=== PATIENT | male | born 1970 | race Two or more races ===

== ENCOUNTER 2019-01-05 09:49 | Inpatient (IN) | payer OTHER ==
[2019-01-05 10:24] VITALS: BMI 19.3
--- NOTE | 2019-01-05 11:39 | HP ---
COWS - Scale Resting Pulse: 0= [place] 80 or Below Sweatin= Chills/Flushing Restless Observation: 1= Difficult to Sit Still Pupil Size: 0= Normal to Room Light Bone or Joint Aches: 4=Acute Joint/Muscle Pain Runny Nose/ Eye Tearin= Constantly Teary/Runny GI Upset > 30mins: 1= Stomach Cramp Tremor Observation: 0= None Yawning Observation: 4= Several Times/Minute Anxiety or Irritability: 2=Irritable/Anxious Goose Flesh Skin: 0=Smooth Skin COWS Score: 17 CIWA Score Nausea/Vomitin-Mild Nausea/No Vomiting Muscle Tremors: None Anxiety: 2 Agitation: 1-Slight > Activity Paroxysmal Sweats: 2 Orientation: 0-Oriented Tacttile Disturbances: 0-None Auditory Disturbances: 2-Mild Harshness/Frighten Visual Disturbances: 2-Mild Sensitivity Headache: 0-None Present CIWA-Ar Total Score: 10 - Admission Criteria OASAS Guidelines: Admission for Medically Managed Detox: Requires at least one of the followin. CIWA greater than 12 2. Seizures within the past 24 hours 3. Delirium tremens within the past 24 hours 4. Hallucinations within the past 24 hours 5. Acute intervention needed for co occurring medical disorder 6. Acute intervention needed for co occurring psychiatric disorder 7. Severe withdrawal that cannot be handled at a lower level of care (continued vomiting, continued diarrhea, abnormal vital signs) requiring intravenous medication and/or fluids 8. Admission ROS [facility] Chief Complaint: " i want to stop this " Allergies/Adverse Reactions: Allergies Allergy/AdvReac Type Severity Reaction Status Date / Time Fish Containing Products Allergy Intermediate Swelling Verified 01/05/19 10:37 History of Present Illness: pt here requesting detox , reports using " anything I can get my hands on " .heroin 12-15 bags /day ivdu since age 26 , longest sobriety 3 yrs ago while in [place] , latest use this morning , 1 am, current symptoms as above , needles from the exchange, denies sharing, denies re-using, abscess x 2 most recently 3 years ago , OD -denies , prior detox 3 years ago . cocaine: 2 bags/day IVDU since age 31 , latest use 1 am today alcohol : 2 pints/day since age 31 , reports drinking alcohol every other day , if not drinking reports tremors , cramps stomach , blackouts , thinks he had w/d seizure 3 years ago , latest use 2 days ago , current symptoms as above. xanax : reports 1 x/day since age 26 , denies sobriety since . other illicits used : oxycodone , vistaril, tried k2 , street methadone - reports latest 01/03/19 bought 30 mg denies other illicits tobacco : 1 ppd , first age of use 19 pmhx : hep C dx 2000 , no tx ; pshx : denies Psych : depression , denies current SI / HI shx : homeless, employed " off the [employer] . Exam Limitations: Clinical Condition - Ebola screening Have you traveled outside of the country in the last 21 days: No Have you had contact with anyone from an Ebola affected area: No Have you been sick,other than usual withdrawal symptoms: No Do you have a fever: No - Review of Systems Constitutional: See HPI EENT: reports: See HPI, Other (reading glasses) Respiratory: reports: No Symptoms reported Cardiac: reports: No Symptoms Reported GI: reports: See HPI : reports: No Symptoms Reported Musculoskeletal: reports: See HPI Integumentary: reports: See HPI (IVDU karly UE) Neuro: reports: No Symptoms reported Endocrine: reports: No Symptoms Reported Psychiatric: reports: Orientated x3, Anxious Patient History - Patient Medical History Hx Anemia: No Hx Asthma: No Hx Chronic Obstructive Pulmonary Disease (COPD): No Hx Cancer: No Hx Cardiac Disorders: No Hx Congestive Heart Failure: No Hx Hypertension: No Hx Hypercholesterolemia: No Hx Pacemaker: No HX Cerebrovascular Accident: No Hx Seizures: No Hx Dementia: No Hx Diabetes: No Hx Gastrointestinal Disorders: No Hx Liver Disease: No Hx Genitourinary Disorders: No Hx Sexually Transmitted Disorders: No Hx Renal Disease (ESRD): No Hx Thyroid Disease: No Hx Human Immunodeficiency Virus (HIV): No (last 08/26) Hx Hepatitis C: Yes (since 2000) Hx Depression: Yes (was on Zoloft and Seroquel 3 yrs ago) Hx Suicide Attempt: No (DENIES) Hx Bipolar Disorder: No Hx Schizophrenia: No - Patient Surgical History Past Surgical History: No Hx Neurologic Surgery: No Hx Cataract Extraction: No Hx Cardiac Surgery: No Hx Lung Surgery: No Hx Breast Surgery: No Hx Breast Biopsy: No Hx Abdominal Surgery: No Hx Appendectomy: No Hx Cholecystectomy: No Hx Genitourinary Surgery: No Hx Section: No Hx Orthopedic Surgery: No Anesthesia Reaction: No - PPD History Previous Implant?: No Documented Results: Positive w/o proof Implanted On Prior [facility] Admission?: No Date: 10/11/14 Results: 0 mm - Smoking Cessation Smoking history: Current every day smoker Have you smoked in the past 12 months: Yes Aproximately how many cigarettes per day: 10 Cigars Per Day: 0 Hx Chewing Tobacco Use: No Initiated information on smoking cessation: No - Substances Abused Heroin Route: Injection Frequency: Daily Amount used: 12-15 bags Age of first use: 26 Date of Last Use: 01/05/19 Cocaine Route: Injection Frequency: Daily Amount used: 2 bags Age of first use: 31 Date of Last Use: 01/05/19 Alprazolam (Xanax) Route: Oral Frequency: Daily Amount used: 2 mg Age of first use: 31 Date of Last Use: 01/05/19 Alcohol Route: Oral Frequency: 3-6 times per week Amount used: 2 pints vodka Age of first use: 31 Date of Last Use: 01/03/19 Non-Rx Methadone Route: Oral Frequency: 1-3 times last 30 days Amount used: 30 mg Age of first use: 48 Date of Last Use: 01/03/19 Admission Physical Exam S - Vital Signs Vital Signs: Vital Signs - 24 hr 01/05/19 10:22 Temperature 98 F Pulse Rate 67 Respiratory 20 Rate Blood Pressure 93/62 - Physical General Appearance: Yes: Disheveled, Moderate Distress, Sweating, Anxious HEENTM: Yes: EOMI, Hearing grossly Normal, Normocephalic, Normal Voice, Nasal Congestion, Rhinorrhea Respiratory: Yes: Chest Non-Tender, Lungs Clear, Normal Breath Sounds Neck: Yes: No masses,lesions,Nodules, Trachea in good position Cardiology: Yes: Regular Rhythm, Regular Rate, S1, S2 Abdominal: Yes: Non Tender, Soft Back: Yes: Normal Inspection Musculoskeletal: Yes: Gait Steady Extremities: Yes: Non-Tender Neurological: Yes: Motor Strength 5/5 - Diagnostic (1) Cocaine dependence Current Visit: Yes Status: Chronic Qualifiers: Substance use status: uncomplicated Qualified Code(s): F14.20 - Cocaine dependence, uncomplicated (2) Alcohol dependence Current Visit: Yes Status: Acute Qualifiers: Substance use status: in withdrawal (3) Benzodiazepine dependence Current Visit: Yes Status: Acute (4) Opioid dependence with withdrawal Current Visit: No Status: Acute (5) Nicotine dependence Current Visit: Yes Status: Chronic Qualifiers: Nicotine product type: cigarettes Substance use status: uncomplicated Qualified Code(s): F17.210 - Nicotine dependence, cigarettes, uncomplicated BHS Breath Alcohol Content Breath Alcohol Content: 0 Urine Drug Screen - Results Drug Screen Negative: No Urine Drug Screen Results: ABRAHAM-Cocaine, OPI-Opiates, BZO-Benzodiazepines, MTD- Methadone Inpatient Rehab Admission - Rehab Decision to Admit Inpatient rehab admission?: No
[2019-01-05] MEDS ORDERED: DICYCLOMINE HCL 10 MG CAPSULE PO PRN (11:45)
[2019-01-05] MEDS ORDERED: MAGNESIUM CITRATE 300 ML BOTTLE PO PRN (11:45)
[2019-01-05] MEDS ORDERED: ACETAMINOPHEN 325 MG TABLET (FP) PO PRN ×2 (11:45)
[2019-01-05] MEDS ORDERED: IBUPROFEN 400 MG TABLET (FP) PO PRN (11:45)
[2019-01-05] MEDS ORDERED: MAGNESIUM HYDROX 2400MG/30ML ORAL SUSPENSION 30 ML CUP PO PRN (11:45)
[2019-01-05] MEDS ORDERED: MENTHOL/PHENOL 1 EACH UD MM PRN (11:45)
[2019-01-05] MEDS ORDERED: BISMUTH SUBSALICYLATE 262 MG/15 ML BTL PO PRN (11:45)
[2019-01-05] MEDS ORDERED: chlordiazePOXIDE HCL 10 MG CAPSULE PO PRN (11:45)
[2019-01-05] MEDS ORDERED: MAG HYDROX/AL HYDROX/SIMETH 30 ML UNIT-DOSE CUP PO PRN (11:45)
[2019-01-05] MEDS ORDERED: MELATONIN 5 MG TABLETS PO PRN (11:45)
[2019-01-05] MEDS ORDERED: NICOTINE POLACRILEX 2 MG GUM BUC PRN (11:45)
[2019-01-05] MEDS ORDERED: METHADONE HCL 10 MG TABLET (FOR DETOX USE ONLY) PO ONE ×2 (13:00→15:45)
[2019-01-05] MEDS: chlordiazePOXIDE HCL 25 MG CAPSULE PO SCH ×2 (14:25→22:17)
[2019-01-05] MEDS: THIAMINE HCL 100 MG TABLET (FP) PO SCH (22:17)
[2019-01-06] MEDS: chlordiazePOXIDE HCL 25 MG CAPSULE PO SCH (05:27)
[2019-01-06] MEDS ORDERED: METHADONE HCL 10 MG TABLET (FOR DETOX USE ONLY) PO ONE (10:00)
[2019-01-06] MEDS: PRENATAL VITAMINS W/ FOLIC ACID TABLET (FP) PO SCH (10:16)
[2019-01-06 12:40] LABS: HEMATOCRIT 37.8 % (35.4-49); HEMOGLOBIN 12.2 GM/dL (11.7-16.9); MCH 25.7 pg (25.7-33.7); MCHC 32.4 g/dl (32.0-35.9); MEAN CELL VOLUME 79.4 fl (80-96); MEAN PLT VOLUME 9.9 fl (7.5-11.1); PLATELET COUNT 317 K/MM3 (134-434); RBC 4.76 M/mm3 (4.00-5.60); RDW 19.9 % (11.9-15.9); WHITE BLOOD COUNT 5.2 K/mm3 (4.0-10.0)
[2019-01-06] MEDS: chlordiazePOXIDE 5 MG CAPSULE PO SCH ×2 (12:44→22:00)
[2019-01-06 13:23] LABS: ALBUMIN 3.7 g/dl (3.4-5.0); ALK PHOS 75 U/L (45-117); ANION GAP 6 MMOL/L (8-16); BILIRUBIN,TOTAL 0.8 mg/dL (0.2-1); BLOOD UREA NITROGEN 15 mg/dL (7-18); CALCIUM 9.1 mg/dL (8.5-10.1); CHLORIDE 99 mmol/L (98-107); CO2 28 mmol/L (21-32); CREATININE 0.9 mg/dL (0.55-1.3); GLUCOSE,RANDOM 75 mg/dL (74-106); POTASSIUM 4.9 mmol/L (3.5-5.1); SGOT/AST 34 U/L (15-37); SGPT/ALT 29 U/L (13-61); SODIUM 133 mmol/L (136-145); TOT PROT 7.9 g/dl (6.4-8.2)
--- NOTE | 2019-01-06 14:37 | PN ---
[facility] CIWA - CIWA Score Nausea/Vomitin-No Nausea/No Vomiting Muscle Tremors: 2 Anxiety: 1-Mildly Anxious Agitation: 2 Paroxysmal Sweats: 1-Minimal Palms Moist Orientation: 0-Oriented Tacttile Disturbances: 0-None Auditory Disturbances: 0-None Visual Disturbances: 0-None Headache: 0-None Present CIWA-Ar Total Score: 6 BHS COWS - Scale Resting Pulse: 0= [place] 80 or Below Sweatin= Chills/Flushing Restless Observation: 0= Sits Still Pupil Size: 0= Normal to Room Light Bone or Joint Aches: 2= Severe Diffuse Aches Runny Nose/ Eye Tearin= Nasal Congestion GI Upset > 30mins: 2= Nausea/Diarrhea Tremor Observation of Outstretched Hands: 2= Slight Tremor Visible Yawning Observation: 2= >3x During Session Anxiety or Irritability: 2=Irritable/Anxious Goose Flesh Skin: 0=Smooth Skin COWS Score: 12 S Progress Note (SOAP) Subjective: feeling better wants to go to methadone maintenance program Objective: 01/06/19 14:37 Vital Signs Temperature 98.4 F 01/06/19 13:45 Pulse Rate 63 01/06/19 13:45 Respiratory Rate 20 01/06/19 13:45 Blood Pressure 104/72 01/06/19 13:45 O2 Sat by Pulse Oximetry (%) Laboratory Last Values WBC 5.2 K/mm3 (4.0-10.0) 01/06/19 06:30 RBC 4.76 M/mm3 (4.00-5.60) 01/06/19 06:30 Hgb 12.2 GM/dL (11.7-16.9) 01/06/19 06:30 Hct 37.8 % (35.4-49) 01/06/19 06:30 MCV 79.4 fl (80-96) L 01/06/19 06:30 MCH 25.7 pg (25.7-33.7) 01/06/19 06:30 MCHC 32.4 g/dl (32.0-35.9) 01/06/19 06:30 RDW 19.9 % (11.9-15.9) H 01/06/19 06:30 Plt Count 317 K/MM3 (134-434) 01/06/19 06:30 MPV 9.9 fl (7.5-11.1) 01/06/19 06:30 Sodium 133 mmol/L (136-145) L 01/06/19 06:30 Potassium 4.9 mmol/L (3.5-5.1) 01/06/19 06:30 Chloride 99 mmol/L (98-107) 01/06/19 06:30 Carbon Dioxide 28 mmol/L (21-32) 01/06/19 06:30 Anion Gap 6 MMOL/L (8-16) L 01/06/19 06:30 BUN 15 mg/dL (7-18) 01/06/19 06:30 Creatinine 0.9 mg/dL (0.55-1.3) 01/06/19 06:30 Creat Clearance w eGFR 90.45 (>60) 01/06/19 06:30 Random Glucose 75 mg/dL (74-106) 01/06/19 06:30 Calcium 9.1 mg/dL (8.5-10.1) 01/06/19 06:30 Total Bilirubin 0.8 mg/dL (0.2-1) 01/06/19 06:30 AST 34 U/L (15-37) 01/06/19 06:30 ALT 29 U/L (13-61) 01/06/19 06:30 Alkaline Phosphatase 75 U/L (45-117) 01/06/19 06:30 Total Protein 7.9 g/dl (6.4-8.2) 01/06/19 06:30 Albumin 3.7 g/dl (3.4-5.0) 01/06/19 06:30 HIV 1&2 Antibody Screen Negative 01/05/19 09:00 HIV P24 Antigen Negative 01/05/19 09:00 lab noted Assessment: 01/06/19 14:37 withdrawal sx Plan: continue detox
[2019-01-06] MEDS: THIAMINE HCL 100 MG TABLET (FP) PO SCH (22:27)
[2019-01-07] MEDS: chlordiazePOXIDE 5 MG CAPSULE PO SCH (05:49)
[2019-01-07] MEDS ORDERED: METHADONE HCL 10 MG TABLET (FOR DETOX USE ONLY) PO ONE (10:00)
[2019-01-07] MEDS: PRENATAL VITAMINS W/ FOLIC ACID TABLET (FP) PO SCH (10:36)
--- NOTE | 2019-01-07 11:53 | PN ---
[facility] CIWA - CIWA Score Nausea/Vomitin-No Nausea/No Vomiting Muscle Tremors: 2 Anxiety: 1-Mildly Anxious Agitation: 1-Slight > Activity Paroxysmal Sweats: 1-Minimal Palms Moist Orientation: 0-Oriented Tacttile Disturbances: 0-None Auditory Disturbances: 0-None Visual Disturbances: 0-None Headache: 1-Very Mild CIWA-Ar Total Score: 6 BHS COWS - Scale Resting Pulse: 0= [place] 80 or Below Sweatin= Chills/Flushing Restless Observation: 0= Sits Still Pupil Size: 0= Normal to Room Light Bone or Joint Aches: 1= Mild Discomfort Runny Nose/ Eye Tearin= Nasal Congestion GI Upset > 30mins: 1= Stomach Cramp Tremor Observation of Outstretched Hands: 1= Tremor [place], Not Seen Yawning Observation: 1= 1-2x During Session Anxiety or Irritability: 1=Feels Anxious/Irritable Goose Flesh Skin: 0=Smooth Skin COWS Score: 7 [facility] Progress Note (SOAP) Subjective: feeling ok today social with peers in day room well rested Objective: 01/07/19 11:53 Vital Signs Temperature 97.4 F L 01/07/19 10:21 Pulse Rate 57 L 01/07/19 10:21 Respiratory Rate 18 01/07/19 10:21 Blood Pressure 100/51 L 01/07/19 10:21 O2 Sat by Pulse Oximetry (%) Laboratory Last Values WBC 5.2 K/mm3 (4.0-10.0) 01/06/19 06:30 RBC 4.76 M/mm3 (4.00-5.60) 01/06/19 06:30 Hgb 12.2 GM/dL (11.7-16.9) 01/06/19 06:30 Hct 37.8 % (35.4-49) 01/06/19 06:30 MCV 79.4 fl (80-96) L 01/06/19 06:30 MCH 25.7 pg (25.7-33.7) 01/06/19 06:30 MCHC 32.4 g/dl (32.0-35.9) 01/06/19 06:30 RDW 19.9 % (11.9-15.9) H 01/06/19 06:30 Plt Count 317 K/MM3 (134-434) 01/06/19 06:30 MPV 9.9 fl (7.5-11.1) 01/06/19 06:30 Sodium 133 mmol/L (136-145) L 01/06/19 06:30 Potassium 4.9 mmol/L (3.5-5.1) 01/06/19 06:30 Chloride 99 mmol/L (98-107) 01/06/19 06:30 Carbon Dioxide 28 mmol/L (21-32) 01/06/19 06:30 Anion Gap 6 MMOL/L (8-16) L 01/06/19 06:30 BUN 15 mg/dL (7-18) 01/06/19 06:30 Creatinine 0.9 mg/dL (0.55-1.3) 01/06/19 06:30 Creat Clearance w eGFR 90.45 (>60) 01/06/19 06:30 Random Glucose 75 mg/dL (74-106) 01/06/19 06:30 Calcium 9.1 mg/dL (8.5-10.1) 01/06/19 06:30 Total Bilirubin 0.8 mg/dL (0.2-1) 01/06/19 06:30 AST 34 U/L (15-37) 01/06/19 06:30 ALT 29 U/L (13-61) 01/06/19 06:30 Alkaline Phosphatase 75 U/L (45-117) 01/06/19 06:30 Total Protein 7.9 g/dl (6.4-8.2) 01/06/19 06:30 Albumin 3.7 g/dl (3.4-5.0) 01/06/19 06:30 RPR Titer Nonreactive (NONREACTIVE) 01/06/19 06:30 HIV 1&2 Antibody Screen Negative 01/05/19 09:00 HIV P24 Antigen Negative 01/05/19 09:00 lab noted Assessment: 01/07/19 11:53 withdrawal sx Plan: continue detox
[2019-01-07] MEDS ORDERED: chlordiazePOXIDE HCL 10 MG CAPSULE PO PRN (13:00)
[2019-01-07] MEDS: chlordiazePOXIDE HCL 10 MG CAPSULE PO SCH ×2 (13:10→22:40)
[2019-01-07] MEDS: THIAMINE HCL 100 MG TABLET (FP) PO SCH (22:40)
[2019-01-08] MEDS: chlordiazePOXIDE HCL 10 MG CAPSULE PO SCH (05:50)
[2019-01-08 06:20] VITALS: BP 98/61; PULSE 62; TEMP 98.5
[2019-01-08] MEDS ORDERED: METHADONE HCL 10 MG TABLET (FOR DETOX USE ONLY) PO ONE (10:00)
--- NOTE | 2019-01-08 21:44 | DS ---
[facility] Detox Discharge Summary Admission Date: 01/05/19 Discharge Date: 01/08/19 - History Present History: Alcohol Dependence, Cocaine Dependence, Opioid Dependence, Sedative Dependence Additional Comments: PATIENT LEFT DETOX UNIT EARLY IN AM PRIOR TO TIME OF ARRIVAL OF [employer] ON UNIT. THUS , PRE-DISCHARGE MEDICAL ASSESSMENT UNABLE TO BE DONE. PER PHARMACY AIDE MILKA COSTELLO, PATIENT TO ATTEND THE [facility] PROGRAM FOR AFTERCARE. Pertinent Past History: Hep C, Depression, Nicotine Dependence. - Physical Exam Results Vital Signs: Vital Signs Temperature 98.5 F 01/08/19 06:19 Pulse Rate 62 01/08/19 06:19 Respiratory Rate 18 01/08/19 06:19 Blood Pressure 98/61 01/08/19 06:19 O2 Sat by Pulse Oximetry (%) Pertinent Admission Physical Exam Findings: WITHDRAWAL SYMPTOMS. Laboratory Tests 01/05/19 01/06/19 01/06/19 09:00 06:30 06:30 WBC 5.2 RBC 4.76 Hgb 12.2 Hct 37.8 MCV 79.4 L MCH 25.7 MCHC 32.4 RDW 19.9 H Plt Count 317 MPV 9.9 Sodium 133 L Potassium 4.9 Chloride 99 Carbon Dioxide 28 Anion Gap 6 L BUN 15 Creatinine 0.9 Creat Clearance w eGFR 90.45 Random Glucose 75 Calcium 9.1 Total Bilirubin 0.8 AST 34 ALT 29 Alkaline Phosphatase 75 Total Protein 7.9 Albumin 3.7 RPR Titer HIV 1&2 Antibody Screen Negative HIV P24 Antigen Negative 01/06/19 06:30 WBC RBC Hgb Hct MCV MCH MCHC RDW Plt Count MPV Sodium Potassium Chloride Carbon Dioxide Anion Gap BUN Creatinine Creat Clearance w eGFR Random Glucose Calcium Total Bilirubin AST ALT Alkaline Phosphatase Total Protein Albumin RPR Titer Nonreactive HIV 1&2 Antibody Screen HIV P24 Antigen LABS NOTED. - Treatment Hospital Course: Detox Protocol Followed, Detoxed Safely, Responded well, Discharged Condition Good Patient has Accepted a Rehab Referral to: PATIENT TO ATTEND THE [facility]T.P[facility] PROGRAM. - Medication Discharge Medications: Ambulatory Orders NK [No Known Home Medication] 10/09/14 - Diagnosis (1) Alcohol dependence Status: Acute Qualifiers: Substance use status: in withdrawal Complication of substance-induced condition: uncomplicated Qualified Code(s): F10.230 - Alcohol dependence with withdrawal, uncomplicated (2) Benzodiazepine dependence Status: Acute (3) Opioid dependence with withdrawal Status: Acute (4) Cocaine dependence Status: Chronic Qualifiers: Substance use status: uncomplicated Qualified Code(s): F14.20 - Cocaine dependence, uncomplicated (5) Nicotine dependence Status: Chronic Qualifiers: Nicotine product type: cigarettes Substance use status: uncomplicated Qualified Code(s): F17.210 - Nicotine dependence, cigarettes, uncomplicated - AMA Did Patient Leave Against Medical Advice: No
[2019-01-09] MEDS ORDERED: METHADONE HCL 5 MG TABLET (FOR DETOX USE ONLY) PO ONE (06:00)
== END 2019-01-08 07:00 | disposition home or self-care (01) | DRG 773 ==
LOC: YASAS 09:49 → Y3N 12:43
PROVIDERS: ADMIT Surgery; ATTEND Surgery
PROC: HZ2ZZZZ Detoxification Services for Substance Abuse Treatment (ICD-10-PCS; principal; 2019-01-05)
DX: F11.23 Opioid dependence with withdrawal (principal); F10.230 Alcohol dependence with withdrawal, uncomplicated; F13.20 Sedative, hypnotic or anxiolytic dependence, uncomplicated; F14.20 Cocaine dependence, uncomplicated; F17.210 Nicotine dependence, cigarettes, uncomplicated
CPT/HCPCS: 36415; 80053; 85027; 86593; 87389

== ENCOUNTER 2019-06-12 08:50 | Inpatient (IN) | payer OTHER ==
[2019-06-12 09:08] VITALS: BMI 18.2
--- NOTE | 2019-06-12 09:36 | HP ---
"COWS - Scale Resting Pulse: 1= [place] 81-100 Sweatin= Chills/Flushing Restless Observation: 1= Difficult to Sit Still Pupil Size: 0= Normal to Room Light Bone or Joint Aches: 1= Mild Discomfort Runny Nose/ Eye Tearin= Nasal Congestion GI Upset > 30mins: 2= Nausea/Diarrhea Tremor Observation: 2= Slight Tremor Visible Yawning Observation: 1= 1-2x During Session Anxiety or Irritability: 1=Feels Anxious/Irritable Goose Flesh Skin: 0=Smooth Skin COWS Score: 11 CIWA Score Nausea/Vomitin Muscle Tremors: 4-Moderate,w/Arms Extend Anxiety: 4-Mod. Anxious/Guarded Agitation: 1-Slight > Activity Paroxysmal Sweats: 1-Minimal Palms Moist Orientation: 0-Oriented Tacttile Disturbances: 1-Very Mild Itch/Numbness Auditory Disturbances: 0-None Visual Disturbances: 0-None Headache: 2-Mild CIWA-Ar Total Score: 15 - Admission Criteria OASAS Guidelines: Admission for Medically Managed Detox: Requires at least one of the followin. CIWA greater than 12 2. Seizures within the past 24 hours 3. Delirium tremens within the past 24 hours 4. Hallucinations within the past 24 hours 5. Acute intervention needed for co occurring medical disorder 6. Acute intervention needed for co occurring psychiatric disorder 7. Severe withdrawal that cannot be handled at a lower level of care (continued vomiting, continued diarrhea, abnormal vital signs) requiring intravenous medication and/or fluids 8. Patient presents the following: CIWA greater than 12 Admission Criteria Met: Admission criteria met Admission ROS S - HPI Chief Complaint: I want to get clean, I might go back to [place], be with my mommy Allergies/Adverse Reactions: Allergies Allergy/AdvReac Type Severity Reaction Status Date / Time Fish Containing Products Allergy Intermediate Swelling Verified 01/05/19 10:37 No Known Drug Allergies Allergy Verified 06/12/19 09:20 History of Present Illness: 49 yo gentleman here for detox from opiates and alcohol, also using cocaine. Patient last here for detox December, - at that time he was to f/u with Joe Monzon [facility] but he did not f/u. Patient denies seizures or overdose but has had black outs. Longest time sober was two years in 2000 while living in remote area of [place] with his mother. urine tox + bzo and oxy but patient states he does not use these separately, must be mixed up with the heroin. States he is unable to go more than a few hours without using and then he gets very sick with diarrhea and shakes, gets alot of cravings and anxiety. He is living in a homeless senior living. Although patient appears to have been on suboxone (see below) he does not seem to remember being on it. [facility] This report was requested by: Elzbieta Elaine | Reference #: [id number] Others' Prescriptions Patient Name: Trent Knight Date: 1970 Address: [address] [place] [id number] Sex: Male Rx Written Rx Dispensed Drug Quantity Days Supply Prescriber Name Payment Method Dispenser 12/08/2018 12/11/2018 buprenorphine-naloxone 8-2 mg sl film 30 10 Karen Rizo () Insurance Lirx Exam Limitations: No Limitations - Ebola screening Have you traveled outside of the country in the last 21 days: No (N) Have you had contact with anyone from an Ebola affected area: No Do you have a fever: No - Review of Systems Constitutional: Loss of Appetite, Malaise, Night Sweats, Weakness, Unintentional Wgt. Loss, Unexplained wgt Loss EENT: reports: Nose Congestion Respiratory: reports: No Symptoms reported Cardiac: reports: No Symptoms Reported GI: reports: Nausea, Poor Fluid Intake, Abdominal cramping : reports: Frequency Musculoskeletal: reports: Back Pain, Muscle Pain Integumentary: reports: No Symptoms Reported Neuro: reports: Headache, Tremors, Weakness Endocrine: reports: No Symptoms Reported Hematology: reports: No Symptoms Reported Psychiatric: reports: Judgement Intact, Mood/Affect Appropiate, Orientated x3, Anxious Other Systems: Reviewed and Negative Patient History - Patient Medical History Hx Anemia: No Hx Asthma: No Hx Chronic Obstructive Pulmonary Disease (COPD): No Hx Cancer: No Hx Cardiac Disorders: No Hx Congestive Heart Failure: No Hx Hypertension: No Hx Hypercholesterolemia: No Hx Pacemaker: No HX Cerebrovascular Accident: No Hx Seizures: No Hx Dementia: No Hx Diabetes: No Hx Gastrointestinal Disorders: No Hx Liver Disease: No Hx Genitourinary Disorders: No Hx Sexually Transmitted Disorders: No Hx Renal Disease (ESRD): No Hx Thyroid Disease: No Hx Human Immunodeficiency Virus (HIV): No (last 08/26) Hx Hepatitis C: Yes (was treated in 2016 with pills while incarcerated) Hx Depression: Yes (was on Zoloft and Seroquel 3 yrs ago) Hx Suicide Attempt: No (DENIES) Hx Bipolar Disorder: No Hx Schizophrenia: No - Patient Surgical History Past Surgical History: No Hx Neurologic Surgery: No Hx Cataract Extraction: No Hx Cardiac Surgery: No Hx Lung Surgery: No Hx Breast Surgery: No Hx Breast Biopsy: No Hx Abdominal Surgery: No Hx Appendectomy: No Hx Cholecystectomy: No Hx Genitourinary Surgery: No Hx Section: No Hx Orthopedic Surgery: No Anesthesia Reaction: No - PPD History Previous Implant?: Yes Documented Results: Negative w/proof Implanted On Prior [facility] Admission?: Yes Date: 01/07/19 Results: 0 mm PPD to be Administered?: No - Reproductive History Patient is a Female of Child Bearing Age (11 -55 yrs old): No - Smoking Cessation Smoking history: Current every day smoker Have you smoked in the past 12 months: Yes Aproximately how many cigarettes per day: 30 Cigars Per Day: 0 Hx Chewing Tobacco Use: No Initiated information on smoking cessation: Yes 'Breaking Loose' booklet given: 06/12/19 (give on floor) - Substance & Tx. History Hx Alcohol Use: Yes Hx Substance Use: Yes Substance Use Type: Alcohol, Cocaine, Heroin, Marijuana, Opiates Hx Substance Use Treatment: Yes (detox, rehab) - Substances abused Alcohol Substance route: Oral Frequency: 3-6 times per week Amount used: 2 pints of vodka Age of first use: 29 Date of last use: 06/11/19 Heroin Substance route: Injection Frequency: Daily Amount used: 15 bags a day Age of first use: 26 Date of last use: 06/12/19 Cocaine Substance route: Injection Frequency: Daily Amount used: 2 bags Age of first use: 29 Date of last use: 06/11/19 Marijuana/Hashish Substance route: Smoking Frequency: Daily Amount used: 1 bag Age of first use: 23 Date of last use: 06/11/19 Family Disease History - Family Disease History Family Disease History: Diabetes: Mother (living, ), Brother (five - two - one from diabetes, one from an abscess), Heart Disease: Father ( ), Other: Father, Mother, Brother, Sister (three - healthy) Admission Physical Exam [facility] - Vital Signs Vital Signs: Vital Signs - 24 hr 06/12/19 06/12/19 09:03 09:14 Temperature 97.3 F L 97.3 F L Pulse Rate 77 77 Respiratory 14 14 Rate Blood Pressure 112/72 112/72 - Physical General Appearance: Yes: Appropriately Dressed, Moderate Distress, Thin, Tremorous, Anxious HEENTM: Yes: EOMI, Hearing grossly Normal, Normocephalic, Normal Voice, Pharynx Normal Respiratory: Yes: Normal Breath Sounds, No Respiratory Distress Neck: Yes: No masses,lesions,Nodules, Supple Breast: Yes: Breast Exam Deferred Cardiology: Yes: Regular Rhythm, Regular Rate Abdominal: Yes: Flat, Soft Genitourinary: Yes: Frequency Back: Yes: Normal Inspection Musculoskeletal: Yes: full range of Motion, Gait Steady, Back pain, Muscle Pain Extremities: Yes: Normal Inspection, Normal Range of Motion, Non-Tender, Tremors Neurological: Yes: Fully Oriented, Alert, Motor Strength 5/5, Normal Mood/Affect , Normal Response Integumentary: Yes: Normal Color, Warm, Track Rojas (both arms with track rojas - no overt abscess or erythema noted) Lymphatic: Yes: Within Normal Limits - Diagnostic (1) Weight decreased Current Visit: Yes Status: Chronic (2) Marijuana dependence Current Visit: Yes Status: Acute (3) Alcohol dependence with uncomplicated withdrawal Current Visit: Yes Status: Chronic (4) Opioid dependence with withdrawal Current Visit: Yes Status: Chronic (5) Cocaine dependence Current Visit: Yes Status: Chronic Qualifiers: Substance use status: uncomplicated Qualified Code(s): F14.20 - Cocaine dependence, uncomplicated (6) Nicotine dependence Current Visit: Yes Status: Chronic Qualifiers: Nicotine product type: cigarettes Substance use status: uncomplicated Qualified Code(s): F17.210 - Nicotine dependence, cigarettes, uncomplicated Cleared for Admission [facility] - Detox or Rehab [facility] Level of Care: Medically Managed Detox Regimen/Protocol: Methadone/Librium Breathalyzer - Breathalyzer Breathalyzer: 0 Urine Drug Screen - Test Device Lot number: [id number] Expiration date: 03/12/21 - Control Is test valid?: Yes - Results Drug screen NEGATIVE: No Urine drug screen results: THC-Marijuana, ABRAHAM-Cocaine, FEN-Fentanyl, MOP-Opiates , OXY-Oxycodone, MTD-Methadone, BZO-Benzodiazepines Inpatient Rehab Admission - Rehab Decision to Admit Inpatient rehab admission?: No"
[2019-06-12] MEDS ORDERED: MENTHOL/PHENOL 1 EACH UD MM PRN (09:51)
[2019-06-12] MEDS ORDERED: BISMUTH SUBSALICYLATE 524 MG/30 ML UD PO PRN (09:51)
[2019-06-12] MEDS ORDERED: hydrOXYzine PAMOATE 25 MG CAPSULE (FP) PO PRN (09:51)
[2019-06-12] MEDS ORDERED: MAG HYDROX/AL HYDROX/SIMETH 30 ML UNIT-DOSE CUP PO PRN (09:51)
[2019-06-12] MEDS ORDERED: traZODone HCL 50 MG TABLET (FP) PO PRN (09:51)
[2019-06-12] MEDS ORDERED: MAGNESIUM CITRATE 300 ML BOTTLE PO PRN (09:51)
[2019-06-12] MEDS ORDERED: ACETAMINOPHEN 325 MG TABLET (FP) PO PRN ×2 (09:51)
[2019-06-12] MEDS ORDERED: chlordiazePOXIDE HCL 10 MG CAPSULE PO PRN (09:51)
[2019-06-12] MEDS ORDERED: cloNIDine HCL 0.1 MG TABLET PO PRN (09:51)
[2019-06-12] MEDS ORDERED: IBUPROFEN 400 MG TABLET (FP) PO PRN (09:51)
[2019-06-12] MEDS ORDERED: MAGNESIUM HYDROX 2400MG/30ML ORAL SUSPENSION 30 ML CUP PO PRN (09:51)
[2019-06-12] MEDS ORDERED: MELATONIN 5 MG TABLETS PO PRN (09:51)
[2019-06-12] MEDS ORDERED: METHOCARBAMOL 500 MG TABLET PO PRN (09:51)
[2019-06-12] MEDS: NICOTINE 21 MG/24 HOURS TOPICAL PATCH TD SCH (10:48)
[2019-06-12] MEDS: PRENATAL VITAMINS W/ FOLIC ACID TABLET (FP) PO SCH (10:48)
[2019-06-12] MEDS ORDERED: METHADONE HCL 10 MG TABLET (FOR DETOX USE ONLY) PO ONE (11:00)
[2019-06-12] MEDS ORDERED: chlordiazePOXIDE HCL 25 MG CAPSULE PO ONE (11:00)
[2019-06-12] MEDS: chlordiazePOXIDE HCL 25 MG CAPSULE PO SCH ×2 (13:47→22:12)
[2019-06-12] MEDS: THIAMINE HCL 100 MG TABLET (FP) PO SCH (22:12)
[2019-06-12 22:24] LABS: HEMOGLOBIN 11.7 GM/dL (11.7-16.9); MCH 27.8 pg (25.7-33.7); MCHC 32.5 g/dl (32.0-35.9); MEAN CELL VOLUME 85.6 fl (80-96); MEAN PLT VOLUME 9.4 fl (7.5-11.1); PLATELET COUNT 277 K/MM3 (134-434); RBC 4.21 M/mm3 (4.00-5.60); RDW 16.7 % (11.9-15.9); WHITE BLOOD COUNT 6.6 K/mm3 (4.0-10.0)
[2019-06-12 22:37] LABS: ALBUMIN 3.7 g/dl (3.4-5.0); BILIRUBIN,TOTAL 0.8 mg/dL (0.2-1); BLOOD UREA NITROGEN 22.2 mg/dL (7-18); POTASSIUM 4.2 mmol/L (3.5-5.1); TOT PROT 7.8 g/dl (6.4-8.2)
[2019-06-13] MEDS: chlordiazePOXIDE HCL 25 MG CAPSULE PO SCH ×3 (06:38→21:09)
[2019-06-13] MEDS ORDERED: METHADONE HCL 5 MG TABLET (FOR DETOX USE ONLY) ONE (09:08)
[2019-06-13] MEDS ORDERED: METHADONE HCL 10 MG TABLET (FOR DETOX USE ONLY) ONE (09:08)
[2019-06-13] MEDS ORDERED: METHADONE (DETOX) 20 MG, METHADONE (DETOX) 5 MG PO ONE (10:00)
[2019-06-13] MEDS: NICOTINE 21 MG/24 HOURS TOPICAL PATCH TD SCH (10:20)
[2019-06-13] MEDS: PRENATAL VITAMINS W/ FOLIC ACID TABLET (FP) PO SCH (10:21)
--- NOTE | 2019-06-13 13:26 | PN ---
[facility] CIWA - CIWA Score Nausea/Vomitin-Mild Nausea/No Vomiting Muscle Tremors: 3 Anxiety: 3 Agitation: 3 Paroxysmal Sweats: 3 Orientation: 0-Oriented Tacttile Disturbances: 0-None Auditory Disturbances: 0-None Visual Disturbances: 0-None Headache: 0-None Present CIWA-Ar Total Score: 13 [facility] COWS - Scale Resting Pulse: 0= [place] 80 or Below Sweatin= Chills/Flushing Restless Observation: 1= Difficult to Sit Still Pupil Size: 0= Normal to Room Light Bone or Joint Aches: 2= Severe Diffuse Aches Runny Nose/ Eye Tearin= Runny Nose/Eyes GI Upset > 30mins: 1= Stomach Cramp Tremor Observation of Outstretched Hands: 2= Slight Tremor Visible Yawning Observation: 0= None Anxiety or Irritability: 1=Feels Anxious/Irritable Goose Flesh Skin: 0=Smooth Skin COWS Score: 10 S Progress Note (SOAP) Subjective: Interrupted sleep, medication is working well Objective: 06/13/19 13:20 Last Vital Signs Temp Pulse Resp BP Pulse Ox 97.9 F 68 15 102/68 06/13/19 09:14 06/13/19 09:14 06/13/19 09:14 06/13/19 09:14 Laboratory Tests 06/12/19 06/12/19 06/12/19 10:10 10:10 10:10 WBC 6.6 RBC 4.21 Hgb 11.7 Hct 36.0 MCV 85.6 MCH 27.8 MCHC 32.5 RDW 16.7 H Plt Count 277 MPV 9.4 Sodium 137 Potassium 4.2 Chloride 103 Carbon Dioxide 29 Anion Gap 5 L BUN 22.2 H Creatinine 1.0 Est GFR (CKD-EPI)AfAm 102.69 Est GFR (CKD-EPI)NonAf 88.61 Random Glucose 84 Calcium 9.0 Total Bilirubin 0.8 AST 55 H ALT 65 H Alkaline Phosphatase 73 Total Protein 7.8 Albumin 3.7 RPR Titer Nonreactive HIV 1&2 Antibody Screen HIV P24 Antigen 06/12/19 10:10 WBC RBC Hgb Hct MCV MCH MCHC RDW Plt Count MPV Sodium Potassium Chloride Carbon Dioxide Anion Gap BUN Creatinine Est GFR (CKD-EPI)AfAm Est GFR (CKD-EPI)NonAf Random Glucose Calcium Total Bilirubin AST ALT Alkaline Phosphatase Total Protein Albumin RPR Titer HIV 1&2 Antibody Screen Cancelled HIV P24 Antigen Cancelled Labs reviewed: bun 22.2 Assessment: 06/13/19 13:22 Withdrawal sxs Noted with azotemia Plan: Continue detox Azotemia: encouraged PO water intake
[2019-06-13] MEDS: THIAMINE HCL 100 MG TABLET (FP) PO SCH (22:09)
[2019-06-14] MEDS ORDERED: chlordiazePOXIDE 5 MG CAPSULE PO SCH (05:00)
[2019-06-14] MEDS ORDERED: METHADONE HCL 10 MG TABLET (FOR DETOX USE ONLY) PO ONE (10:00)
[2019-06-14] MEDS: PRENATAL VITAMINS W/ FOLIC ACID TABLET (FP) PO SCH (10:22)
[2019-06-14] MEDS: NICOTINE 21 MG/24 HOURS TOPICAL PATCH TD SCH (10:22)
--- NOTE | 2019-06-14 10:27 | PN ---
[facility] CIWA - CIWA Score Nausea/Vomitin Muscle Tremors: 2 Anxiety: 2 Agitation: 2 Paroxysmal Sweats: No Perspiration Orientation: 0-Oriented Tacttile Disturbances: 1-Very Mild Itch/Numbness Auditory Disturbances: 0-None Visual Disturbances: 0-None Headache: 2-Mild CIWA-Ar Total Score: 11 BHS COWS - Scale Resting Pulse: 0= [place] 80 or Below Sweatin= Chills/Flushing Restless Observation: 1= Difficult to Sit Still Pupil Size: 1= Pupils >than Normal Bone or Joint Aches: 1= Mild Discomfort Runny Nose/ Eye Tearin= Nasal Congestion GI Upset > 30mins: 1= Stomach Cramp Tremor Observation of Outstretched Hands: 1= Tremor [place], Not Seen Yawning Observation: 1= 1-2x During Session Anxiety or Irritability: 2=Irritable/Anxious Goose Flesh Skin: 0=Smooth Skin COWS Score: 10 [facility] Progress Note (SOAP) Subjective: alert,irritable,anxious,interrupted sleep,pain in the body and back Objective: 06/14/19 10:26 Vital Signs Temperature 97.7 F 06/14/19 07:45 Pulse Rate 60 06/14/19 07:45 Respiratory Rate 18 06/14/19 07:45 Blood Pressure 85/45 L 06/14/19 07:45 O2 Sat by Pulse Oximetry (%) Assessment: 06/14/19 10:26 withdrawal symptom Plan: continue detox methadone and librium regimen
[2019-06-14 10:51] VITALS: BP 96/66; PULSE 67; TEMP 98.2
--- NOTE | 2019-06-14 11:16 | PN ---
[facility] Progress Note Note: patient does not want to complete treatment due to personal problem,high risk of relapsing explained, signed release ama,seen by counselor
--- NOTE | 2019-06-14 11:20 | DS ---
[facility] Detox Discharge Summary Admission Date: 06/12/19 Discharge Date: 06/14/19 - History Present History: Alcohol Dependence, Cocaine Dependence, Opioid Dependence Additional Comments: patient signed release AMA,advise to call 911 if not feeling well Pertinent Past History: nicotine dependence - Physical Exam Results Vital Signs: Vital Signs Temperature 98.2 F 06/14/19 10:00 Pulse Rate 67 06/14/19 10:00 Respiratory Rate 17 06/14/19 10:00 Blood Pressure 96/66 06/14/19 10:00 O2 Sat by Pulse Oximetry (%) Pertinent Admission Physical Exam Findings: withdrawal signs and symptom Laboratory Last Values WBC 6.6 K/mm3 (4.0-10.0) 06/12/19 10:10 RBC 4.21 M/mm3 (4.00-5.60) 06/12/19 10:10 Hgb 11.7 GM/dL (11.7-16.9) 06/12/19 10:10 Hct 36.0 % (35.4-49) 06/12/19 10:10 MCV 85.6 fl (80-96) 06/12/19 10:10 MCH 27.8 pg (25.7-33.7) 06/12/19 10:10 MCHC 32.5 g/dl (32.0-35.9) 06/12/19 10:10 RDW 16.7 % (11.9-15.9) H 06/12/19 10:10 Plt Count 277 K/MM3 (134-434) 06/12/19 10:10 MPV 9.4 fl (7.5-11.1) 06/12/19 10:10 Sodium 137 mmol/L (136-145) 06/12/19 10:10 Potassium 4.2 mmol/L (3.5-5.1) 06/12/19 10:10 Chloride 103 mmol/L (98-107) 06/12/19 10:10 Carbon Dioxide 29 mmol/L (21-32) 06/12/19 10:10 Anion Gap 5 MMOL/L (8-16) L 06/12/19 10:10 BUN 22.2 mg/dL (7-18) H 06/12/19 10:10 Creatinine 1.0 mg/dL (0.55-1.3) 06/12/19 10:10 Est GFR (CKD-EPI)AfAm 102.69 06/12/19 10:10 Est GFR (CKD-EPI)NonAf 88.61 06/12/19 10:10 Random Glucose 84 mg/dL (74-106) 06/12/19 10:10 Calcium 9.0 mg/dL (8.5-10.1) 06/12/19 10:10 Total Bilirubin 0.8 mg/dL (0.2-1) 06/12/19 10:10 AST 55 U/L (15-37) H 06/12/19 10:10 ALT 65 U/L (13-61) H 06/12/19 10:10 Alkaline Phosphatase 73 U/L (45-117) 06/12/19 10:10 Total Protein 7.8 g/dl (6.4-8.2) 06/12/19 10:10 Albumin 3.7 g/dl (3.4-5.0) 06/12/19 10:10 RPR Titer Nonreactive (NONREACTIVE) 06/12/19 10:10 HIV 1&2 Antibody Screen Cancelled 06/12/19 10:10 HIV P24 Antigen Cancelled 06/12/19 10:10 Vital Signs Temperature 98.2 F 06/14/19 10:00 Pulse Rate 67 06/14/19 10:00 Respiratory Rate 17 06/14/19 10:00 Blood Pressure 96/66 06/14/19 10:00 O2 Sat by Pulse Oximetry (%) - Medication Discharge Medications: Ambulatory Orders NK [No Known Home Medication] 10/09/14 - AMA Did Patient Leave Against Medical Advice: Yes
[2019-06-15] MEDS ORDERED: chlordiazePOXIDE HCL 10 MG CAPSULE PO PRN
[2019-06-15] MEDS ORDERED: chlordiazePOXIDE HCL 10 MG CAPSULE PO SCH (05:00)
[2019-06-15] MEDS ORDERED: METHADONE (DETOX) 10 MG, METHADONE (DETOX) 5 MG PO ONE (10:00)
[2019-06-16] MEDS ORDERED: chlordiazePOXIDE HCL 10 MG CAPSULE PO ONE (05:00)
[2019-06-16] MEDS ORDERED: METHADONE HCL 10 MG TABLET (FOR DETOX USE ONLY) PO ONE (10:00)
[2019-06-17] MEDS ORDERED: METHADONE HCL 5 MG TABLET (FOR DETOX USE ONLY) PO ONE (06:00)
== END 2019-06-14 11:30 | disposition left against medical advice (07) | DRG 770 ==
LOC: YASAS 08:50 → Y6N 10:00
PROVIDERS: ADMIT Surgery; ATTEND Surgery
PROC: HZ2ZZZZ Detoxification Services for Substance Abuse Treatment (ICD-10-PCS; principal; 2019-06-12)
DX: F11.23 Opioid dependence with withdrawal (principal); F10.230 Alcohol dependence with withdrawal, uncomplicated; F14.20 Cocaine dependence, uncomplicated; F12.20 Cannabis dependence, uncomplicated; F17.210 Nicotine dependence, cigarettes, uncomplicated; R79.89 Other specified abnormal findings of blood chemistry; R63.4 Abnormal weight loss; Z91.013 Allergy to seafood
CPT/HCPCS: 36415; 80053; 85027; 86593; 87389

== ENCOUNTER 2024-01-23 13:51 | Inpatient (IN) | payer OTHER ==
[2024-01-23 14:38] VITALS: BMI 19.4
[2024-01-23] MEDS ORDERED: BENZOCAINE/MENTHOL (CHLORASEPTIC ) LOZENGE MM PRN (15:08)
[2024-01-23] MEDS ORDERED: POLYETHYLENE GLYCOL (HEALTHYLAX) 3350 17 GM PACKET PO PRN (15:08)
[2024-01-23] MEDS ORDERED: BENZONATATE 200 MG CAPSULE PO PRN (15:08)
[2024-01-23] MEDS ORDERED: IBUPROFEN 600 MG TABLET (FP) PO PRN (15:08)
[2024-01-23] MEDS ORDERED: MAG HYDROX/AL HYDROX/SIMETH 30 ML UNIT-DOSE CUP PO PRN (15:08)
[2024-01-23] MEDS ORDERED: NALOXONE HCL 0.4 MG/ML VIAL IM PRN (15:08)
[2024-01-23] MEDS ORDERED: LORazepam 1 MG TABLET PO PRN (15:08)
[2024-01-23] MEDS ORDERED: DICYCLOMINE HCL 10 MG CAPSULE PO PRN (15:08)
[2024-01-23] MEDS ORDERED: NALOXONE HCL (KLOXXADO) 8 MG SPRAY NS PRN (15:08)
[2024-01-23] MEDS ORDERED: ACETAMINOPHEN 325 MG TABLET (FP) PO PRN (15:08)
[2024-01-23] MEDS ORDERED: BISMUTH SUBSALICYLATE 524 MG/30 ML PO PRN (15:08)
[2024-01-23] MEDS ORDERED: hydrOXYzine PAMOATE 25 MG CAPSULE (FP) PO PRN (15:08)
[2024-01-23] MEDS ORDERED: guaiFENesin 600 MG TABLET.ER (FP) PO PRN (15:08)
[2024-01-23] MEDS ORDERED: IBUPROFEN 400 MG TABLET (FP) PO PRN (15:08)
[2024-01-23] MEDS ORDERED: MAGNESIUM HYDROX 2400MG/30ML ORAL SUSPENSION 30 ML CUP PO PRN (15:08)
[2024-01-23] MEDS ORDERED: LOPERAMIDE HCL 2 MG CAPSULE PO PRN (15:08)
[2024-01-23] MEDS ORDERED: ONDANSETRON *ODT* 4 MG TABLET ONE (15:31)
[2024-01-23] MEDS ORDERED: NICOTINE 21 MG/24 HOURS TOPICAL PATCH ONE (15:33)
[2024-01-23] MEDS ORDERED: PRENATAL VITAMINS W/ FOLIC ACID TABLET (FP) PO ONE (15:33)
[2024-01-23] MEDS: ONDANSETRON *ODT* 4 MG TABLET SL PRN (15:33)
[2024-01-23] MEDS: NICOTINE 21 MG/24 HOURS TOPICAL PATCH TD SCH (15:57)
[2024-01-23] MEDS: PRENATAL VITAMINS W/ FOLIC ACID TABLET (FP) PO SCH (15:57)
[2024-01-23] MEDS: LORazepam 2 MG TABLET PO SCH (17:31)
[2024-01-23] MEDS: MELATONIN 5 MG TABLETS PO SCH (22:54)
[2024-01-23] MEDS: THIAMINE HCL 100 MG TABLET (FP) PO SCH (22:54)
[2024-01-24] MEDS: methaDONE HCL 40 MG DISPERSABLE TABLET PO SCH (10:52)
[2024-01-24 14:08] LABS: HEMATOCRIT 35.9 % (35.4-49); HEMOGLOBIN 11.3 GM/dL (11.7-16.9); MCH 24.1 pg (25.7-33.7); MCHC 31.5 g/dl (32.0-35.9); MEAN CELL VOLUME 76.5 fl (80-96); MEAN PLT VOLUME 9.3 fl (7.5-11.1); PLATELET COUNT 463 10^3/uL (134-434); RDW 19.7 % (11.9-15.9)
[2024-01-24 14:19] LABS: CHLORIDE 104 mmol/L (98-107); POTASSIUM 4.8 mmol/L (3.5-5.1); SODIUM 138 mmol/L (136-145)
[2024-01-24 14:23] LABS: ALBUMIN 3.2 g/dl (3.4-5.0); ANION GAP 5 mmol/L (4-13); BLOOD UREA NITROGEN 7.7 mg/dL (7-18); CALCIUM 8.7 mg/dL (8.5-10.1); CO2 29 mmol/L (21-32); GLUCOSE,RANDOM 85 mg/dL (74-106)
[2024-01-24 14:26] LABS: CREATININE 0.8 mg/dL (0.55-1.3); SGOT/AST 27 U/L (15-37)
[2024-01-24 14:27] LABS: SGPT/ALT 24 U/L (13-61); TOT PROT 7.2 g/dl (6.4-8.2)
[2024-01-24 14:28] LABS: BILIRUBIN,TOTAL 0.2 mg/dL (0.2-1)
[2024-01-24 14:29] LABS: ALK PHOS 103 U/L (45-117)
[2024-01-25] MEDS: LORazepam 1 MG TABLET PO SCH (05:32)
[2024-01-25] MEDS: LACTULOSE 20 GM/30 ML UDC (FOR ORAL USE ONLY) PO SCH (13:25)
[2024-01-25] MEDS: METHOCARBAMOL 500 MG TABLET PO PRN (22:24)
[2024-01-26] MEDS ORDERED: LORazepam 0.5 MG TABLET PO PRN
[2024-01-26] MEDS: LORazepam 0.5 MG TABLET PO SCH (05:38)
[2024-01-27] MEDS: LORazepam 0.5 MG TABLET PO ONE (05:32)
[2024-01-27 09:06] VITALS: BP 129/66; PULSE 78; RESP 20; TEMP 98
== END 2024-01-27 09:34 | disposition other institution (70) | DRG 773 ==
LOC: YASAS 13:51 → Y3N 15:31
PROVIDERS: ADMIT Allergy & Immunology; ATTEND Surgery
PROC: HZ2ZZZZ Detoxification Services for Substance Abuse Treatment (ICD-10-PCS; principal; 2024-01-23)
DX: F10.230 Alcohol dependence with withdrawal, uncomplicated (principal); F11.20 Opioid dependence, uncomplicated; F13.20 Sedative, hypnotic or anxiolytic dependence, uncomplicated; F14.20 Cocaine dependence, uncomplicated; F12.20 Cannabis dependence, uncomplicated; F17.210 Nicotine dependence, cigarettes, uncomplicated; E72.20 Disorder of urea cycle metabolism, unspecified; Z28.310 Unvaccinated for COVID-19; Z28.9 Immunization not carried out for unspecified reason
CPT/HCPCS: 36415; 80053; 80307; 82140; 85027; 86780; 93005; 93010; Q0162

== ENCOUNTER 2024-03-08 20:44 | Inpatient (IN) | payer OTHER ==
[2024-03-08 22:45] VITALS: BMI 18.2
[2024-03-08] MEDS ORDERED: guaiFENesin 600 MG TABLET.ER (FP) PO PRN (23:24)
[2024-03-08] MEDS ORDERED: MAG HYDROX/AL HYDROX/SIMETH 30 ML UNIT-DOSE CUP PO PRN (23:24)
[2024-03-08] MEDS ORDERED: MAGNESIUM HYDROX 2400MG/30ML ORAL SUSPENSION 30 ML CUP PO PRN (23:24)
[2024-03-08] MEDS ORDERED: BISMUTH SUBSALICYLATE 524 MG/30 ML PO PRN (23:24)
[2024-03-08] MEDS ORDERED: BENZOCAINE/MENTHOL (CHLORASEPTIC ) LOZENGE MM PRN (23:24)
[2024-03-08] MEDS ORDERED: ACETAMINOPHEN 325 MG TABLET (FP) PO PRN (23:24)
[2024-03-08] MEDS ORDERED: NALOXONE HCL 0.4 MG/ML VIAL IM PRN (23:24)
[2024-03-08] MEDS ORDERED: BENZONATATE 200 MG CAPSULE PO PRN (23:24)
[2024-03-08] MEDS ORDERED: NICOTINE POLACRILEX 2 MG GUM BUC PRN (23:24)
[2024-03-08] MEDS ORDERED: NALOXONE HCL (KLOXXADO) 8 MG SPRAY NS PRN (23:24)
[2024-03-08] MEDS ORDERED: METHOCARBAMOL 500 MG TABLET PO PRN (23:24)
[2024-03-08] MEDS ORDERED: IBUPROFEN 400 MG TABLET (FP) PO PRN (23:24)
[2024-03-08] MEDS ORDERED: LOPERAMIDE HCL 2 MG CAPSULE PO PRN (23:24)
[2024-03-08] MEDS ORDERED: hydrOXYzine PAMOATE 25 MG CAPSULE (FP) PO PRN (23:24)
[2024-03-08] MEDS ORDERED: ONDANSETRON *ODT* 4 MG TABLET SL PRN (23:24)
[2024-03-08] MEDS ORDERED: POLYETHYLENE GLYCOL (HEALTHYLAX) 3350 17 GM PACKET PO PRN (23:24)
[2024-03-08] MEDS ORDERED: DICYCLOMINE HCL 10 MG CAPSULE PO PRN (23:24)
[2024-03-08] MEDS ORDERED: IBUPROFEN 600 MG TABLET (FP) PO PRN (23:24)
[2024-03-09] MEDS ORDERED: methaDONE HCL 10 MG TABLET PO ONE (09:01)
[2024-03-09] MEDS: PRENATAL VITAMINS W/ FOLIC ACID TABLET (FP) PO SCH (09:46)
[2024-03-09] MEDS: NICOTINE 14 MG/24 HOURS TOPICAL PATCH TD SCH (09:48)
[2024-03-09] MEDS: diazePAM 5 MG TABLET PO SCH (10:07)
[2024-03-09 10:16] LABS: HEMATOCRIT 32.2 % (35.4-49); HEMOGLOBIN 10.6 GM/dL (11.7-16.9); MCH 24.8 pg (25.7-33.7); MEAN CELL VOLUME 75.1 fl (80-96); MEAN PLT VOLUME 8.7 fl (7.5-11.1); PLATELET COUNT 328 10^3/uL (134-434); WHITE BLOOD COUNT 5.7 K/mm3 (4.0-10.0)
[2024-03-09 10:18] LABS: CHLORIDE 103 mmol/L (98-107); POTASSIUM 4.4 mmol/L (3.5-5.1); SODIUM 134 mmol/L (136-145)
[2024-03-09 10:24] LABS: CALCIUM 8.6 mg/dL (8.5-10.1)
[2024-03-09 10:25] LABS: ANION GAP 3 mmol/L (4-13); BLOOD UREA NITROGEN 12.8 mg/dL (7-18); CO2 29 mmol/L (21-32); GLUCOSE,RANDOM 88 mg/dL (74-106)
[2024-03-09 10:26] LABS: ALBUMIN 3.1 g/dl (3.4-5.0)
[2024-03-09 10:28] LABS: CREATININE 0.9 mg/dL (0.55-1.3); SGOT/AST 33 U/L (15-37); SGPT/ALT 26 U/L (13-61)
[2024-03-09 10:29] LABS: TOT PROT 6.8 g/dl (6.4-8.2)
[2024-03-09 10:30] LABS: ALK PHOS 98 U/L (45-117); BILIRUBIN,TOTAL 0.3 mg/dL (0.2-1)
[2024-03-09] MEDS: THIAMINE 100 MG TABLET PO SCH (22:27)
[2024-03-09] MEDS: MELATONIN 5 MG TABLETS PO SCH (22:28)
[2024-03-10] MEDS ORDERED: methaDONE HCL 10 MG TABLET PO SCH (06:00)
[2024-03-10] MEDS: diazePAM 5 MG TABLET PO SCH (06:05)
[2024-03-10 06:31] VITALS: BP 91/60; PULSE 60; RESP 18; TEMP 97.3
[2024-03-11] MEDS ORDERED: diazePAM 5 MG TABLET PO SCH (06:00)
[2024-03-12] MEDS ORDERED: diazePAM 5 MG TABLET PO ONE (06:00)
== END 2024-03-10 06:50 | disposition left against medical advice (07) | DRG 770 ==
LOC: YASAS 20:44 → Y6N 23:20
PROVIDERS: ADMIT Allergy & Immunology; ATTEND Surgery
PROC: HZ2ZZZZ Detoxification Services for Substance Abuse Treatment (ICD-10-PCS; principal; 2024-03-08)
DX: F10.230 Alcohol dependence with withdrawal, uncomplicated (principal); F14.20 Cocaine dependence, uncomplicated; F11.20 Opioid dependence, uncomplicated; F17.210 Nicotine dependence, cigarettes, uncomplicated; Z86.59 Personal history of other mental and behavioral disorders; Z86.19 Personal history of other infectious and parasitic diseases
CPT/HCPCS: 36415; 80053; 80305; 80307; 85027; 86780; 93005; 93010